=== PATIENT | female | born 1980 | race African-American/Black ===

== ENCOUNTER 2016-10-06 19:06 | Emergency (ER) | payer SELFPAY ==
[2016-10-06 19:14] VITALS: BP 97/63
[2016-10-06] MEDS ORDERED: NS 0.9% 1000 ML* 1,000 ML IV ONE (19:24)
[2016-10-06] MEDS ORDERED: LORazepam INJ* 2 MG/ML 1 ML VIAL IV ONE (19:24)
--- NOTE | 2016-10-06 20:16 | ED ---
Substance Abuse/Use - HPI Summary HPI Summary: Patient LUBA with a suspected drug overdose. Patient was found [address] stated she had taken heroin. Patient is a known drug abuser of opioids and admits to using previously, but not today. Patient states she got the drug on the street and it was "cut" with something like a tranquilizer. Patient is combative on arrival and immediately wants to sign out AMA. - History Of Current Complaint Chief Complaint: EDOverdose Stated Complaint: OVERDOSE Time Seen by Provider: 10/06/16 19:16 Hx Obtained From: Patient Hx Last Menstrual Period: murena/iud does not cycle ?: No Onset/Duration of Drug/ETOH Abuse: Minutes Ingestion History: Type/Name Of Drug - heroin and other unknown, Approximate Time Of Ingestion - unknown Overdose Characteristics: IV Timing Of Abuse: Daily Severity Initially: Moderate Severity Currently: Moderate Character: Fearful, Anxious, Angry, Frustrated Aggravating Factor(s): Nothing Alleviating Factor(s): Nothing Associated Signs And Symptoms: Paranoid Behavior, Altered Mental Status Related Hx: Drug/Alcohol Last Used @, Possible Multi Drug Ingestion - Risk Factor(s) Completed Suicide Risk Factors: White [place] - Allergies/Home Medications Allergies/Adverse Reactions: Allergies Allergy/AdvReac Type Severity Reaction Status Date / Time Amoxicillin Allergy Severe Rash Verified 01/25/15 09:56 Ketorolac Tromethamine Allergy Severe Anaphylatic Verified 01/25/15 09:56 [From Toradol] Shock Tramadol Allergy Severe Itching Verified 01/25/15 09:56 Levothyroxine Allergy Unknown Hives/Diff. Verified 01/25/15 09:56 Breathing/I tching PMH/Surg Hx/FS Hx/Imm Hx Previously Healthy: Yes Endocrine/Hematology History: Reports: Hx Thyroid Disease - Hypothryoidism Denies: Hx Diabetes Cardiovascular History: Reports: Other Cardiovascular Problems/Disorders - endocarditis Denies: Hx Hypertension Respiratory History: Denies: Hx Asthma, Hx Chronic Obstructive Pulmonary Disease (COPD) GI History: Reports: Hx Gastroesophageal Reflux Disease, Hx Ulcer - gerd Musculoskeletal History: Reports: Hx Back Problems, Other Musculoskeletal History - Ankle surgery Sensory History: Denies: Hx Contacts or Glasses Opthamlomology History: Denies: Hx Contacts or Glasses Psychiatric History: Reports: Hx Anxiety, Hx Depression, Hx Post Traumatic Stress Disorder, Hx Community Mental Health Tx, Other Psychiatric Issues/ Disorders - polysubstance abuse - Surgical History Surgery Procedure, Year, and Place: Ankle Surgery Infectious Disease History: No Infectious Disease History: Reports: Hx Hepatitis - Hepatitis C, Hx of Known/ Suspected MRSA, History Other Infectious Disease Denies: Hx Clostridium Difficile, Hx Human Immunodeficiency Virus (HIV), Hx Shingles, Hx Tuberculosis, Traveled Outside the [place] in Last 30 Days - Social History Occupation: Unemployed Lives: Alone Alcohol Use: None Hx Substance Use: Yes Substance Use Type: Reports: Cocaine, Heroin, Marijuana, Synthetic Drugs, Prescribed, Tranquilizers Substance Use Comment - Amount & Last Used: heroin addiction-last used January 2015 Hx Tobacco Use: Yes Smoking Status (MU): Current Every Day Smoker Type: Cigarettes Amount Used/How Often: 1/2 pack a day Have You Smoked in the Last Year: Yes Review of Systems Positive: Skin Diaphoresis Positive: Palpitations Positive: Shortness Of Breath Positive: no symptoms reported, see HPI Positive: Arthralgia - back pain 05/06 Neurological: Negative Positive: Anxious All Other Systems Reviewed And Are Negative: Yes Physical Exam Triage Information Reviewed: Yes Vital Signs On Initial Exam: Initial Vitals Temp Pulse Resp BP Pulse Ox 98.1 F 97 24 97/63 97 10/06/16 19:08 10/06/16 19:08 10/06/16 19:08 10/06/16 19:08 10/06/16 19:08 Vital Signs Reviewed: Yes Appearance: Positive: Ill-Appearing, Pain Distress, Obese Skin: Positive: Warm, Diaphoretic Head/Face: Positive: Normal Head/Face Inspection Eyes: Positive: EOMI, CARMELA, Other: - miosis Neck: Positive: No Lymphadenopathy Respiratory/Lung Sounds: Positive: Clear to Auscultation Cardiovascular: Positive: Tachycardia Bowel Sounds: Positive: Present Neurological: Positive: Normal, Sensory/Motor Intact, Other - no alert or oriented to place or time AVPU Assessment: Alert - [place] Coma Scale Best Eye Response: 4 - Spontaneous Best Motor Response: 5 - Purposeful Movement Best Verbal Response: 5 - Oriented Diagnostics - Vital Signs Vital Signs Temp Pulse Resp BP Pulse Ox 10/06/16 19:08 98.1 F 97 24 97/63 97 - Laboratory Lab Statement: Any lab studies that have been ordered have been reviewed, and results considered in the medical decision making process. Course/Dx - Course Course Of Treatment: Patient combative on exam. Physical exam limited d/t behavior. Patient admits to heroin. Refusing treatment. signing out AMA. - Diagnoses Differential Diagnosis/HQI/PQRI: Positive: Delirium Tremens, Drug Abuse, Drug Withdrawal, Metabolic Disorder Provider Diagnoses: Overdose Discharge - Discharge Plan Condition: Fair Disposition: AGAINST MEDICAL ADVICE Referrals: Non Staff,Doctor [Primary Care Provider] -
== END 2016-10-06 21:37 | disposition left against medical advice (07) ==
LOC: ED 19:06
DX: T40.1X4A Poisoning by heroin, undetermined, initial encounter (principal); R06.02 Shortness of breath; M54.9 Dorsalgia, unspecified; R00.2 Palpitations; F17.210 Nicotine dependence, cigarettes, uncomplicated; Y92.9 Unspecified place or not applicable
CPT/HCPCS: 96374; 99282

== ENCOUNTER 2016-10-13 06:04 | Inpatient (IN) | payer SELFPAY ==
--- NOTE | 2016-10-13 10:36 | RAD ---
Indication: Altered mental status, vomiting. Endocarditis. Comparison: January 25, 2015 Technique: Upright AP 0620 hours Report: Obese body habitus limits image quality. Grossly clear lungs and pleural spaces. Negative for pneumothorax. Suggestion of mild cardiomegaly. Unremarkable central pulmonary vasculature and mediastinal contours. Negative for free air beneath the diaphragm. IMPRESSION: No acute cardiopulmonary process evident.
[2016-10-13] MEDS ORDERED: Ondansetron INJ* 2 MG/ML VIAL IV ONE ×5 (10:54→16:33)
[2016-10-13 11:23] LABS: Hematocrit 44 % (35-47); Hemoglobin 14.3 g/dl (12.0-16.0); Mean Corpuscular HGB Conc 33 g/dl (31-36); Mean Corpuscular Hemoglobin 30 pg (27-31); Mean Corpuscular Volume 94 fL (80-97); Mean Platelet Volume 8 um3 (7.4-10.4); Red Blood Count 4.71 10^6/ul (4.0-5.4); Red Cell Distribution Width 16 % (10.5-15)
[2016-10-13 11:27] LABS: Add Diff/Slide Review? Slide Review Added; Comments Flag Yes
[2016-10-13 11:38] LABS: ALT 95 U/L (7-52); AST 118 U/L (13-39); Albumin 3.9 g/dL (3.2-5.2); Alkaline Phosphatase 113 U/L (34-104); Anion Gap 13 mmol/L (2-11); BUN/Creatinine Ratio 11.5 (8-20); Blood Urea Nitrogen 9 mg/dL (6-24); C Reactive Protein 22.16 mg/L (< 5.00); CO2 Carbon Dioxide 22 mmol/L (22-32); Calcium 9.1 mg/dL (8.6-10.3); Chloride 102 mmol/L (101-111); Creatine Kinase 368 U/L (10-223); EGFR African American 106.9 (>60); EGFR Non-African American 83.1 (>60); Globulin 3.2 g/dL (2-4); Glucose 72 mg/dL (70-100); Magnesium 2.1 mg/dL (1.9-2.7); Potassium 4.1 mmol/L (3.5-5.0); Sodium 137 mmol/L (133-145); Total Protein 7.1 g/dL (6.4-8.9)
[2016-10-13] MEDS ORDERED: Ondansetron ODT TAB* 4 MG ONE (11:44)
[2016-10-13] MEDS ORDERED: Ondansetron ODT TAB* 4 MG PO ONE ×2 (11:46→12:34)
[2016-10-13 11:49] LABS: B Type Natriuretic Peptide 105 pg/mL
[2016-10-13 12:10] LABS: TSH (Thyroid Stimulating Horm) 1.54 mcIU/mL (0.34-5.60)
[2016-10-13] MEDS ORDERED: NS 0.9% 1000 ML* 1,000 ML IV ONE ×2 (12:29→13:32)
[2016-10-13 13:14] LABS: Acetaminophen < 15 mcg/mL; Alcohol < 10 mg/dL (<10); Salicylate < 2.50 mg/dL (<30)
[2016-10-13] MEDS ORDERED: LORazepam INJ* 2 MG/ML 1 ML VIAL IV ONE (14:19)
[2016-10-13 16:27] LABS: Lipase < 10 U/L (11.0-82.0)
[2016-10-13] MEDS ORDERED: PROCHLORPERAZINE INJ 5 MG/ML 2 ML VIAL IV ONE (17:17)
[2016-10-13] MEDS ORDERED: Trimethobenzamide IM* 100 MG/ML 2 ml VIAL IM PRN (17:20)
[2016-10-13] MEDS ORDERED: LORazepam INJ* 2 MG/ML 1 ML VIAL ONE (17:29)
[2016-10-13] MEDS: LORazepam INJ* 2 MG/ML 1 ML VIAL IV PUSH PRN ×2 (17:32→23:21)
[2016-10-13 18:08] LABS: Urine Bilirubin Negative (Negative); Urine Glucose Negative (Negative); Urine Nitrite Negative (Negative)
[2016-10-13 18:09] LABS: Benzodiazepine Urine Screen Presumptive Positive (None Detect)
--- NOTE | 2016-10-13 18:47 | ED ---
ILeticia SooYoung, scribed for Matt Abreu MD on 10/13/16 at 1049 . Progress - Progress Note Progress Note: Sign-out from Dr. Resendez. Pt is a 36 y/o F BIBA to ED for heroin overdose, vomiting. She was found apneic and unresponsive by EMS and given narcan which reportedly worked to some extent. They still had to bag assist her breathing on the way to the hospital but when I saw her she was sleepy but maintaining her own airway. We checked her labs here but had a very difficult time getting blood and were unable to establish a peripheral line. Her initial ecg had a QTc of about 500. after a couple hours here she developed nausea and vomiting and I was forced to place a femoral line to administer fluids and antiemetics. A repeat ecg showed her QTc to be improved to 440 so she was given Zofran. She remained with a decreased mental status and periodic vomiting for several hours and I contacted the hospitalist service for admission. She was admitted in stable condition with a diagnosis of poly-substance abuse and overdose. - EKG/XRAY/CT Comments: EKG at 1050: NSR and QTC is 436. XRAY: chest Xray Comments: read by radiologist, impression: no active cardiopulmonary process evident Course/Dx - Diagnoses Provider Diagnoses: Polysubstance abuse, Overdose - Provider Notifications Discussed Care Of Patient With: Dr. Dailey, hospitalist Time Discussed With Above Provider: 16:19 Instructed by Provider To: Admit As Inpatient The documentation as recorded by the Leticia burr SooYoung accurately reflects the service I personally performed and the decisions made by me, Matt Abreu MD.
[2016-10-13] MEDS: NS 0.9% 1000 ML* 1,000 ML IV SCH (21:10)
[2016-10-13] MEDS ORDERED: Mouth Piece, Nicotine* 1 EACH CARTRIDGE ONE (22:25)
[2016-10-13] MEDS ORDERED: Nicotine PATCH 21 MG/24 HR* PATCH ONE (22:26)
[2016-10-13] MEDS ORDERED: Nicotine Inhaler* 10 MG AMP ONE (22:26)
[2016-10-13] MEDS: Nicotine Inhaler* 10 MG AMP INH PRN (22:30)
[2016-10-13] MEDS: Ondansetron INJ* 2 MG/ML VIAL IV PRN (22:31)
[2016-10-13] MEDS ORDERED: Mouth Piece, Nicotine* 1 EACH CARTRIDGE INH ONE (23:00)
[2016-10-13] MEDS ORDERED: Nicotine PATCH 21 MG/24 HR* PATCH TRANSDERM SCH (23:00)
--- NOTE | 2016-10-14 00:23 | HP ---
HISTORY AND PHYSICAL: DATE OF ADMISSION: 10/13/16 PRIMARY CARE PROVIDER: None. CHIEF COMPLAINT: Overdose. HISTORY OF PRESENT ILLNESS: Ms. Liao is a 36-year-old female with a history of long-standing heroin abuse and prescription drug abuse who was seen initially in the emergency room on 10/06/16 after being found half nude on the street stating that she had taken heroin. The patient at that time thought the heroin was caught with something like an animal tranquilizer. The patient was combative and signed out against medical advice at that time. The patient re- presented on 10/13/16 after being found having overdosed on an unknown drug. The patient thought she snorted heroin. The patient stated approximately 5 p.m. on the day prior to admission, she snorted some substance that she believes to be heroin; however, she was then found unresponsive. It is not completely clear who found her and called 911. The patient has been living in [facility] with her father and had been clean from heroin; however, abusing her prescription drugs including Ritalin, Klonopin, and Elavil. The patient came to [place] for the last 1 week after her son was going to be leaving for [place] and she wanted to see him prior to leaving. The patient has completed many programs in the past and has been on methadone program until April 2016. She states that she has not been using any prescription narcotics that she obtained legally or illegally. The patient's father initially stated that she abused narcotics and when that information was obtained, I asked her if she felt she maybe withdrawing and she felt that she maybe actually withdrawing; however, it was later clarified she was not actually using narcotic medications, so it is unclear what she maybe withdrawing from. PAST MEDICAL HISTORY: 1. Depression. 2. Anxiety. 3. ADD. 4. Hypothyroidism. 5. History of C. difficile 3 to 4 weeks ago. PAST SURGICAL HISTORY: Right ankle surgery. MEDICATIONS: 1. Levothyroxine 112 mcg p.o. daily. 2. Celexa at unknown dose daily. 3. Ritalin 20 mg p.o. t.i.d. 4. Klonopin 2 mg p.o. t.i.d. p.r.n. anxiety. 5. Elavil 100 mg p.o. at bedtime. ALLERGIES: AMOXICILLIN, KETOROLAC, and TRAMADOL. FAMILY HISTORY: Dad is living, he is 67. He has a history of hypertension, hypothyroidism, and type 2 diabetes. Mom is living, she is 64. Her health status is unknown. SOCIAL HISTORY: The patient is a nonsmoker. She does not drink alcohol. She has a history of heroin abuse as well as abusing prescription drugs. She is not working currently. She is not . She has 1 child who is 18 years old. She indicates that her godmother, Monica Flores, phone number is her health care proxy. REVIEW OF SYSTEMS: The patient admits to fevers, chills, anorexia, and chest pain ongoing since snorting last evening. She describes the chest discomfort is as if someone is sitting on her chest. She states it has been coming and going, but has been present consistently since 5 p.m. last evening. She admits to cough. No shortness of breath. She admits to persistent nausea and vomiting since snorting whatever substance it was last evening. No diarrhea. No abdominal pain. Denies any blood in her stool. No blood in her urine. No dysuria. No focal weakness or sensory loss. No sudden changes in vision. No dysphagia. No joint pains or muscle pains out of the ordinary. No rashes. She admits to anxiety and depression as above. PHYSICAL EXAMINATION GENERAL: The patient is a 36-year-old obese female, sitting in the stretcher, frequently vomiting brown chunky material into the vomit bag. VITAL SIGNS: Blood pressure 137/108, pulse 94, respirations 16, temperature 98.8, and O2 sat 99% on room air. HEENT: Pupils are equal. They are round. They react to light. Extraocular muscles are intact. Oropharynx is clear. Oral mucosa is moist. There is no submandibular, cervical, or supraclavicular adenopathy. NECK: Thyroid is not enlarged. No thyroid nodules noted. PULMONARY: Lungs are clear to auscultation bilaterally. CARDIAC: Normal S1, S2. Regular rate and rhythm. I do not appreciate any murmurs. There is no lower extremity edema. ABDOMEN: Bowel sounds are hypoactive. Abdomen is soft, nontender, and nondistended. MUSCULOSKELETAL: There is no cyanosis or clubbing of the digits. There is full active range of motion of all 4 extremities. NEUROLOGIC: Cranial nerves II through XII are grossly intact. Sensation is intact to light touch throughout. Strength is 5/5 and symmetric in both upper and lower extremities bilaterally. PSYCH: The patient is alert. She is oriented x3. Affect appears appropriate. SKIN: Warm. It is dry. She has scratching on her right forearm. No other obvious skin breakdown. DIAGNOSTIC STUDIES/LAB DATA: WBC 11.0, hemoglobin 14.3, hematocrit 44, and platelets 209. Sodium 137, potassium 4.1, chloride 102, CO2 22, BUN 9, creatinine 0.78, glucose 72, lactic acid 1.0, calcium 9.1, and magnesium 2.1. Bilirubin 0.8, AST 118, ALT 95, and alk phos 113. Ammonia 36. CPK 368 and CK- MB 3.7. Troponin 0. CRP 22.16. BNP 105. Albumin 3.9, lipase less than 10. TSH 1.54. Salicylate less than 2.5. Acetaminophen less than 15. Alcohol less than 10. Chest x-ray: No acute cardiopulmonary process. EKG reveals sinus arrhythmia without any acute ST-T wave abnormality. ASSESSMENT AND PLAN: Ms. Liao is a 36-year-old female with a long- standing history of heroin abuse and prescription drug abuse who presents to the emergency room after overdosing on what she thought was heroin though she is not sure. 1. Unintentional drug overdose: The drug that she snorted last night is not completely clear. She believed that it was heroin. She believed that she overdosed on heroin laced with animal tranquilizers 1 week ago. I asked what was different between that overdose and this. She states that she was not this ill last time. The patient could potentially be withdrawing from her prescription medications especially if does abuse these. For now, the patient' s biggest symptoms are persistent nausea and vomiting. She will be admitted as observation to try to control the nausea and vomiting. The patient's father is present. He drove in from [facility]. He states that he will not be taking her back to [facility] unless she gets into a drug treatment program. 2. Transaminitis: I suspect this is related to her drug overdose. I will go ahead and get followup liver panel tomorrow. Additionally, the patient has a mildly elevated CPK and this will be followed up tomorrow as well. 3. Anxiety and depression: At this point, the patient does not know her usual dose of Celexa. I am going to have IV Ativan available given her severe nausea and vomiting at this point. She will need to be restarted on her usual home regimen of Celexa, Klonopin, and Elavil once she is more stable. 4. Hypothyroidism: The patient will be maintained on her usual dose of Synthroid. 5. DVT prophylaxis: According to the Adult Thrombosis Prophylaxis Risk Factor Assessment Guide, the patient has a total risk factor score of 1, making her low risk. Ambulation will be utilized as DVT prophylaxis. 6. Code status: Full and again, the patient indicates that her godmother, Monica Flores, is her health care proxy. TIME SPENT: Sixty-five minutes was spent admitting this patient. [id number]/CPS #: [id number] MTDD
[2016-10-14] MEDS: PROCHLORPERAZINE INJ 5 MG/ML 2 ML VIAL IV PRN ×3 (01:05→22:45)
[2016-10-14] MEDS: LEVOTHYROXINE 112 MCG PO SCH (05:39)
[2016-10-14] MEDS: NS 0.9% 1000 ML* 1,000 ML IV SCH (05:44)
[2016-10-14] MEDS: LORazepam INJ* 2 MG/ML 1 ML VIAL IV PUSH PRN ×2 (05:48→17:47)
[2016-10-14 05:58] LABS: Hematocrit 37 % (35-47); Hemoglobin 12.6 g/dl (12.0-16.0); Mean Corpuscular HGB Conc 34 g/dl (31-36); Mean Corpuscular Hemoglobin 31 pg (27-31); Mean Corpuscular Volume 90 fL (80-97); Mean Platelet Volume 8 um3 (7.4-10.4); Red Blood Count 4.13 10^6/ul (4.0-5.4); Red Cell Distribution Width 16 % (10.5-15); White Blood Count 12.8 10^3/ul (3.5-10.8)
[2016-10-14 06:16] LABS: Albumin 3.5 g/dL (3.2-5.2); BUN/Creatinine Ratio 6.9 (8-20); Calcium 8.7 mg/dL (8.6-10.3); Direct Bilirubin 0.2 mg/dL (0.03-0.18); EGFR African American 117.2 (>60); EGFR Non-African American 91.1 (>60); Indirect Bilirubin 0.5 mg/dL (0.3-1.0); Total Bilirubin 0.7 mg/dL (0.2-1.0); Total Protein 6.5 g/dL (6.4-8.9)
[2016-10-14 06:25] LABS: Potassium 2.7 mmol/L (3.5-5.0)
[2016-10-14] MEDS ORDERED: Potassium Chlor TAB* 20 MEQ TAB.ER PO ONE (07:13)
[2016-10-14] MEDS: KCL 20 MEQ/100 ML IVPREMIX* 20 MEQ/100 ML BAG IV SCH ×3 (07:57→13:05)
--- NOTE | 2016-10-14 10:19 | PN ---
Subjective Date of Service: 10/14/16 Interval History: Pt is feeling lousy still. She is still very nauseous and has not been able to hold anything down today. She states she has abdominal pain but when asked specifically about the pain she stated it was nausea. Objective Active Medications: Sodium Chloride (Ns 0.9% 1000 Ml*) 1,000 mls @ 125 mls/hr IV PER RATE [facility] Last Admin: 10/14/16 05:44 Dose: 125 mls/hr Potassium Chloride (Potassium Chloride 20 Meq/100 Ml Ivpremix*) 20 meq in 100 mls @ 50 mls/hr IV Q2H [facility] Stop: 10/14/16 13:29 Last Admin: 10/14/16 07:57 Dose: 50 mls/hr Lorazepam (Ativan Inj*) 1 mg IV PUSH Q6H PRN PRN Reason: Anxiety or nausea Last Admin: 10/14/16 05:48 Dose: 1 mg Metoclopramide HCl (Reglan Iv*) 10 mg IV Q6H PRN PRN Reason: NAUSEA/VOMITING Nicotine (Nicotine Inhaler*) 10 mg INH Q2H PRN PRN Reason: CRAVING Last Admin: 10/13/16 22:30 Dose: 10 mg Nicotine (Nicotine Patch 21 Mg/24 Hr*) 1 patch TRANSDERM 0700 [facility] Synthroid (Brand (Only) 112 Mcg Tablet) 1 dose PO 0600 [facility] Last Admin: 10/14/16 05:39 Dose: Not Given Ondansetron HCl (Zofran Inj*) 4 mg IV Q6H PRN PRN Reason: NAUSEA Last Admin: 10/13/16 22:31 Dose: 4 mg Pharmacy Profile Note (Nicotine Patch Removal Note*) 1 note PATCH OFF 2100 [facility] Prochlorperazine Edisylate (Compazine Inj*) 10 mg IV Q6H PRN PRN Reason: NAUSEA/VOMITING Last Admin: 10/14/16 01:05 Dose: 10 mg Trimethobenzamide HCl (Tigan Im*) 200 mg IM Q6H PRN PRN Reason: NAUSEA Vital Signs 10/13/16 10/13/16 10/13/16 17:00 17:32 18:00 Temperature Pulse Rate 96 100 Respiratory 16 20 Rate Blood Pressure 137/108 (mmHg) O2 Sat by Pulse 99 95 Oximetry 10/13/16 10/13/16 10/13/16 19:00 19:12 21:09 Temperature 98.7 F 98.3 F Pulse Rate 102 88 100 Respiratory 20 22 Rate Blood Pressure 104/68 144/94 (mmHg) O2 Sat by Pulse 96 98 Oximetry 10/13/16 10/13/16 10/13/16 21:14 21:24 23:21 Temperature 98.3 F Pulse Rate 98 Respiratory 20 20 18 Rate Blood Pressure 144/94 (mmHg) O2 Sat by Pulse 98 Oximetry 10/13/16 10/14/16 10/14/16 23:41 00:21 03:22 Temperature 98.3 F Pulse Rate 97 106 Respiratory 24 20 20 Rate Blood Pressure 144/78 149/83 (mmHg) O2 Sat by Pulse 97 97 Oximetry 10/14/16 10/14/16 10/14/16 05:48 06:48 07:41 Temperature 99.3 F Pulse Rate 116 Respiratory 22 16 18 Rate Blood Pressure 119/68 (mmHg) O2 Sat by Pulse 96 Oximetry Oxygen Devices in Use Now: None Appearance: Young obese female lying in bed, NAD Eyes: No Scleral Icterus Ears/Nose/Mouth/Throat: Mucous Membranes Moist Respiratory: Symmetrical Chest Expansion and Respiratory Effort, Clear to Auscultation - anteriorly Cardiovascular: NL Sounds; No Murmurs; No JVD, - - tachycardic but regular Abdominal: NL Sounds; No Tenderness; No Distention Extremities: No Clubbing, Cyanosis Skin: No Rash or Ulcers, No Nodules or Sclerosis Neurological: - - sleepy, awakens after several attempts Result Diagrams: 10/14/16 05:39 10/14/16 05:39 Microbiology and Other Data: Microbiology 10/13/16 19:05 Nasal Screen MRSA (PCR)(ASHLEY) - Final Nasal Mrsa Negative Assess/Plan/Problems-Billing Ms Liao is a 36 yo F who has a h/o heroin abuse who presented to the ER after overdosing on a substance she believed to be heroin. - Patient Problems (1) Overdose Current Visit: Yes Status: Acute Code(s): T50.901A - POISONING BY UNSP DRUG/ MEDS/BIOL SUBST, ACCIDENTAL, INIT SNOMED Code(s): 33353098 Comment: Unclear what the patient overdosed on. She is now able to communicate but is sleepy. She continues to have significant nausea and vomiting that I am not sure is related to her overdose. Continue aggressive antiemetic therapies. Social work eval pending as her father states he will not take her home unless she is going into a treatment program. (2) Hypothyroid Current Visit: Yes Status: Chronic Code(s): E03.9 - HYPOTHYROIDISM, UNSPECIFIED SNOMED Code(s): 19529637 Comment: Continue current dose of synthroid. (3) DVT prophylaxis Current Visit: Yes Status: Acute Code(s): HUW3100 - SNOMED Code(s): 323475049 Comment: ambulation (4) Full code status Current Visit: Yes Status: Acute Code(s): Z78.9 - OTHER SPECIFIED HEALTH STATUS SNOMED Code(s): 479521824
[2016-10-14] MEDS: Nicotine PATCH 21 MG/24 HR* PATCH TRANSDERM SCH (10:24)
[2016-10-14] MEDS: Ondansetron INJ* 2 MG/ML VIAL IV PRN ×2 (10:24→21:46)
[2016-10-14] MEDS: Nicotine Patch Removal NOTE PATCH OFF SCH (21:14)
[2016-10-15] MEDS: NS 0.9% 1000 ML* 1,000 ML IV SCH ×3 (00:34→20:51)
[2016-10-15] MEDS: Metoclopramide IV* 5 MG/ML 2 ML VIAL IV PRN ×2 (02:58→09:33)
[2016-10-15] MEDS: PROCHLORPERAZINE INJ 5 MG/ML 2 ML VIAL IV PRN ×4 (05:41→23:11)
[2016-10-15] MEDS: LORazepam INJ* 2 MG/ML 1 ML VIAL IV PUSH PRN ×2 (05:42→17:49)
[2016-10-15] MEDS: LEVOTHYROXINE 112 MCG PO SCH (06:26)
[2016-10-15 07:43] LABS: BUN/Creatinine Ratio 6.3 (8-20); Calcium 8.2 mg/dL (8.6-10.3); EGFR African American 136.7 (>60); EGFR Non-African American 106.3 (>60)
[2016-10-15] MEDS: Nicotine PATCH 21 MG/24 HR* PATCH TRANSDERM SCH (07:50)
[2016-10-15] MEDS: Ondansetron INJ* 2 MG/ML VIAL IV PRN ×2 (08:26→20:52)
[2016-10-15 09:07] LABS: Hematocrit 38 % (35-47); Hemoglobin 12.8 g/dl (12.0-16.0); Mean Corpuscular HGB Conc 34 g/dl (31-36); Mean Corpuscular Hemoglobin 31 pg (27-31); Mean Corpuscular Volume 92 fL (80-97); Mean Platelet Volume 8 um3 (7.4-10.4); Red Blood Count 4.13 10^6/ul (4.0-5.4); Red Cell Distribution Width 16 % (10.5-15); White Blood Count 8.5 10^3/ul (3.5-10.8)
[2016-10-15] MEDS: KCL 20 MEQ/100 ML IVPREMIX* 20 MEQ/100 ML BAG IV SCH ×2 (09:33→13:55)
--- NOTE | 2016-10-15 10:05 | PN ---
Subjective Date of Service: 10/15/16 Interval History: Pt states she is still feeling terrible but less vomiting today than yesterday. She repeatedly asks for more IV ativan. Objective Active Medications: Clonazepam (Klonopin Tab(*)) 2 mg PO TID PRN PRN Reason: ANXIETY Sodium Chloride (Ns 0.9% 1000 Ml*) 1,000 mls @ 125 mls/hr IV PER RATE [facility] Last Admin: 10/15/16 00:34 Dose: 125 mls/hr Potassium Chloride (Potassium Chloride 20 Meq/100 Ml Ivpremix*) 20 meq in 100 mls @ 50 mls/hr IV Q2H [facility] Stop: 10/15/16 13:59 Last Admin: 10/15/16 09:33 Dose: 50 mls/hr Lorazepam (Ativan Inj*) 1 mg IV PUSH Q12H PRN PRN Reason: Anxiety or nausea Last Admin: 10/15/16 05:42 Dose: 1 mg Metoclopramide HCl (Reglan Iv*) 10 mg IV Q6H PRN PRN Reason: NAUSEA/VOMITING Last Admin: 10/15/16 09:33 Dose: 10 mg Nicotine (Nicotine Inhaler*) 10 mg INH Q2H PRN PRN Reason: CRAVING Last Admin: 10/13/16 22:30 Dose: 10 mg Nicotine (Nicotine Patch 21 Mg/24 Hr*) 1 patch TRANSDERM 0700 [facility] Last Admin: 10/15/16 07:50 Dose: Not Given Synthroid (Brand (Only) 112 Mcg Tablet) 1 dose PO 0600 [facility] Last Admin: 10/15/16 06:26 Dose: Not Given Ondansetron HCl (Zofran Inj*) 4 mg IV Q6H PRN PRN Reason: NAUSEA Last Admin: 10/15/16 08:26 Dose: 4 mg Pharmacy Profile Note (Nicotine Patch Removal Note*) 1 note PATCH OFF 2100 [facility] Last Admin: 10/14/16 21:14 Dose: Not Given Prochlorperazine Edisylate (Compazine Inj*) 10 mg IV Q6H PRN PRN Reason: NAUSEA/VOMITING Last Admin: 10/15/16 05:41 Dose: 10 mg Trimethobenzamide HCl (Tigan Im*) 200 mg IM Q6H PRN PRN Reason: NAUSEA Vital Signs 10/14/16 10/14/16 10/14/16 15:46 17:47 18:47 Temperature 97.8 F Pulse Rate 88 Respiratory 18 20 Rate Blood Pressure 127/91 (mmHg) O2 Sat by Pulse 99 Oximetry 10/14/16 10/14/16 10/14/16 19:29 19:47 20:00 Temperature 97.9 F Pulse Rate 98 Respiratory 24 18 18 Rate Blood Pressure 116/67 (mmHg) O2 Sat by Pulse 97 Oximetry 10/14/16 10/14/16 10/14/16 20:47 21:47 22:47 Temperature Pulse Rate Respiratory 18 18 18 Rate Blood Pressure (mmHg) O2 Sat by Pulse Oximetry 10/14/16 10/14/16 10/15/16 23:17 23:47 00:47 Temperature 97.9 F Pulse Rate 102 Respiratory 24 18 18 Rate Blood Pressure 118/62 (mmHg) O2 Sat by Pulse 98 Oximetry 10/15/16 10/15/16 10/15/16 01:47 03:36 05:42 Temperature 97.5 F Pulse Rate 87 Respiratory 18 20 18 Rate Blood Pressure 115/72 (mmHg) O2 Sat by Pulse 98 Oximetry 10/15/16 10/15/16 06:42 07:42 Temperature 97.4 F Pulse Rate 88 Respiratory 18 18 Rate Blood Pressure 118/75 (mmHg) O2 Sat by Pulse 100 Oximetry Oxygen Devices in Use Now: None Appearance: Young female lying in bed, awake, NAD Eyes: No Scleral Icterus Ears/Nose/Mouth/Throat: Mucous Membranes Moist Respiratory: Symmetrical Chest Expansion and Respiratory Effort, Clear to Auscultation Cardiovascular: NL Sounds; No Murmurs; No JVD, RRR, No Edema Abdominal: NL Sounds; No Tenderness; No Distention Extremities: No Clubbing, Cyanosis Skin: No Rash or Ulcers, No Nodules or Sclerosis Neurological: Alert and Oriented x 3 Result Diagrams: 10/15/16 08:53 10/15/16 06:42 Microbiology and Other Data: Microbiology 10/13/16 19:05 Nasal Screen MRSA (PCR)(ASHLEY) - Final Nasal Mrsa Negative Assess/Plan/Problems-Billing Ms Liao is a 36 yo F who has a h/o heroin abuse who presented to the ER after overdosing on a substance she believed to be heroin. - Patient Problems (1) Overdose Current Visit: Yes Status: Acute Code(s): T50.901A - POISONING BY UNSP DRUG/ MEDS/BIOL SUBST, ACCIDENTAL, INIT SNOMED Code(s): 75299629 Comment: Only issue currently is that she continues to have intractable nausea and vomiting. She has not been getting some of the other antiemetics. Will work on alternating the medications. Advance diet to bland. (2) Hypothyroid Current Visit: Yes Status: Chronic Code(s): E03.9 - HYPOTHYROIDISM, UNSPECIFIED SNOMED Code(s): 04532004 Comment: Continue current dose of synthroid. (3) DVT prophylaxis Current Visit: Yes Status: Acute Code(s): EDH1711 - SNOMED Code(s): 141550723 Comment: ambulation (4) Full code status Current Visit: Yes Status: Acute Code(s): Z78.9 - OTHER SPECIFIED HEALTH STATUS SNOMED Code(s): 630235318
[2016-10-15] MEDS: clonazePAM TAB(*) 1 MG PO PRN ×2 (10:57→20:52)
[2016-10-15] MEDS: Nicotine Patch Removal NOTE PATCH OFF SCH (20:55)
[2016-10-15] MEDS ORDERED: Mouth Piece, Nicotine* 1 EACH CARTRIDGE ONE (21:01)
[2016-10-15] MEDS: Nicotine Inhaler* 10 MG AMP INH PRN (21:02)
[2016-10-16] MEDS: NS 0.9% 1000 ML* 1,000 ML IV SCH ×2 (04:52→19:42)
[2016-10-16] MEDS: Nicotine PATCH 21 MG/24 HR* PATCH TRANSDERM SCH (05:40)
[2016-10-16] MEDS: LEVOTHYROXINE 112 MCG PO SCH (05:40)
[2016-10-16] MEDS: PROCHLORPERAZINE INJ 5 MG/ML 2 ML VIAL IV PRN ×3 (06:16→23:59)
[2016-10-16] MEDS: Metoclopramide IV* 5 MG/ML 2 ML VIAL IV PRN (07:13)
[2016-10-16] MEDS: clonazePAM TAB(*) 1 MG PO PRN ×3 (07:13→23:57)
[2016-10-16 08:16] LABS: Calcium 8.9 mg/dL (8.6-10.3); EGFR African American 127.4 (>60); Potassium 3.3 mmol/L (3.5-5.0)
[2016-10-16] MEDS ORDERED: Potassium Chlor TAB* 20 MEQ TAB.ER PO ONE (08:32)
--- NOTE | 2016-10-16 08:42 | PN ---
Subjective Date of Service: 10/16/16 Interval History: Pt is feeling "miserable." When I ask her what his bothering her she states her anxiety and her stomach is upset. She states that she thinks her stomach is upset secondary to her anxiety. She requests to restart her celexa and elavil. She is not sure if she is ready to go home yet. Objective Active Medications: Amitriptyline HCl (Elavil Tab*) 100 mg PO BEDTIME [facility] Citalopram Hydrobromide (Celexa Tab*) 20 mg PO DAILY [facility] Clonazepam (Klonopin Tab(*)) 2 mg PO TID PRN PRN Reason: ANXIETY Last Admin: 10/16/16 07:13 Dose: 2 mg Sodium Chloride (Ns 0.9% 1000 Ml*) 1,000 mls @ 125 mls/hr IV PER RATE [facility] Last Admin: 10/16/16 04:52 Dose: 125 mls/hr Lorazepam (Ativan Inj*) 1 mg IV PUSH Q12H PRN PRN Reason: Anxiety or nausea Last Admin: 10/15/16 17:49 Dose: 1 mg Metoclopramide HCl (Reglan Iv*) 10 mg IV Q6H PRN PRN Reason: NAUSEA/VOMITING Last Admin: 10/16/16 07:13 Dose: 10 mg Nicotine (Nicotine Inhaler*) 10 mg INH Q2H PRN PRN Reason: CRAVING Last Admin: 10/15/16 21:02 Dose: 10 mg Nicotine (Nicotine Patch 21 Mg/24 Hr*) 1 patch TRANSDERM 0700 [facility] Last Admin: 10/16/16 05:40 Dose: Not Given Synthroid (Brand (Only) 112 Mcg Tablet) 1 dose PO 0600 [facility] Last Admin: 10/16/16 05:40 Dose: Not Given Ondansetron HCl (Zofran Inj*) 4 mg IV Q6H PRN PRN Reason: NAUSEA Last Admin: 10/15/16 20:52 Dose: 4 mg Pharmacy Profile Note (Nicotine Patch Removal Note*) 1 note PATCH OFF 2100 [facility] Last Admin: 10/15/16 20:55 Dose: Not Given Prochlorperazine Edisylate (Compazine Inj*) 10 mg IV Q6H PRN PRN Reason: NAUSEA/VOMITING Last Admin: 10/16/16 06:16 Dose: 10 mg Trimethobenzamide HCl (Tigan Im*) 200 mg IM Q6H PRN PRN Reason: NAUSEA Vital Signs 10/15/16 10/15/16 10/15/16 10:57 12:57 15:45 Temperature 98.5 F Pulse Rate 94 Respiratory 16 16 16 Rate Blood Pressure 120/88 (mmHg) O2 Sat by Pulse 98 Oximetry 10/15/16 10/15/16 10/15/16 17:49 18:49 20:00 Temperature Pulse Rate Respiratory 16 16 18 Rate Blood Pressure (mmHg) O2 Sat by Pulse Oximetry 10/15/16 10/15/16 10/15/16 20:52 22:52 22:53 Temperature Pulse Rate 97 Respiratory 18 18 20 Rate Blood Pressure 119/74 (mmHg) O2 Sat by Pulse 98 Oximetry 10/15/16 10/16/16 23:24 07:13 Temperature 98.5 F Pulse Rate 84 Respiratory 24 16 Rate Blood Pressure 135/72 (mmHg) O2 Sat by Pulse 97 Oximetry Oxygen Devices in Use Now: None Appearance: Young female lying in bed, NAD Eyes: No Scleral Icterus Ears/Nose/Mouth/Throat: Mucous Membranes Moist Respiratory: Symmetrical Chest Expansion and Respiratory Effort, Clear to Auscultation Cardiovascular: NL Sounds; No Murmurs; No JVD, RRR, No Edema Abdominal: NL Sounds; No Tenderness; No Distention Extremities: No Clubbing, Cyanosis Skin: No Rash or Ulcers, No Nodules or Sclerosis Neurological: Alert and Oriented x 3 Result Diagrams: 10/15/16 08:53 10/16/16 06:46 Microbiology and Other Data: Microbiology 10/13/16 19:05 Nasal Screen MRSA (PCR)([facility]LEY) - Final Nasal Mrsa Negative Assess/Plan/Problems-Billing Ms Liao is a 36 yo F who has a h/o heroin abuse who presented to the ER after overdosing on a substance she believed to be heroin. - Patient Problems (1) Overdose Current Visit: Yes Status: Acute Code(s): T50.901A - POISONING BY UNSP DRUG/ MEDS/BIOL SUBST, ACCIDENTAL, INIT SNOMED Code(s): 67689571 Comment: Nausea continues but the vomiting has improved. I think she is getting close to being ready to go home. The plan is for the patient to go back to [facility] with her father and establish with a new counselor and PCP. Possibly d/c this afternoon. (2) Hypothyroid Current Visit: Yes Status: Chronic Code(s): E03.9 - HYPOTHYROIDISM, UNSPECIFIED SNOMED Code(s): 32284955 Comment: Continue current dose of synthroid (pt had not been receiving as she can only take brand name-brand name synthroid has been ordered and is available to start this AM). (3) DVT prophylaxis Current Visit: Yes Status: Acute Code(s): YAW2600 - SNOMED Code(s): 278205533 Comment: ambulation (4) Full code status Current Visit: Yes Status: Acute Code(s): Z78.9 - OTHER SPECIFIED HEALTH STATUS SNOMED Code(s): 110583232
[2016-10-16] MEDS: Citalopram TAB* 20 MG PO SCH (09:40)
[2016-10-16] MEDS: Ondansetron INJ* 2 MG/ML VIAL IV PRN ×2 (09:47→20:55)
[2016-10-16] MEDS: LORazepam INJ* 2 MG/ML 1 ML VIAL IV PUSH PRN ×2 (11:50→23:58)
[2016-10-16] MEDS: Nicotine Patch Removal NOTE PATCH OFF SCH (20:51)
[2016-10-16] MEDS ORDERED: Amitriptyline TAB* 50 MG PO SCH ×2 (21:00)
[2016-10-17] MEDS: Metoclopramide IV* 5 MG/ML 2 ML VIAL IV PRN ×2 (01:13→14:14)
[2016-10-17] MEDS: Ondansetron INJ* 2 MG/ML VIAL IV PRN ×2 (03:55→12:16)
[2016-10-17] MEDS: NS 0.9% 1000 ML* 1,000 ML IV SCH (04:20)
[2016-10-17] MEDS: Nicotine PATCH 21 MG/24 HR* PATCH TRANSDERM SCH (05:32)
[2016-10-17] MEDS: LEVOTHYROXINE 112 MCG PO SCH (05:48)
[2016-10-17] MEDS: PROCHLORPERAZINE INJ 5 MG/ML 2 ML VIAL IV PRN (06:05)
[2016-10-17] MEDS: clonazePAM TAB(*) 1 MG PO PRN ×2 (06:06→12:16)
[2016-10-17] MEDS: Nicotine Inhaler* 10 MG AMP INH PRN (06:13)
[2016-10-17 08:07] VITALS: BP 145/90
[2016-10-17] MEDS ORDERED: LORazepam INJ* 2 MG/ML 1 ML VIAL IV PUSH PRN (10:15)
[2016-10-17] MEDS: Prochlorperazine TAB* 10 MG PO SCH ×2 (10:28→12:45)
[2016-10-17] MEDS: Citalopram TAB* 20 MG PO SCH (10:28)
[2016-10-17] MEDS ORDERED: Famotidine TAB* 20 MG PO SCH (11:00)
--- NOTE | 2016-10-18 01:28 | DS ---
DISCHARGE SUMMARY: DATE OF ADMISSION: 10/13/16 DATE OF DISCHARGE: 10/17/16 NEW PRIMARY CARE PROVIDER: Dr. Angel Briseno. DISCHARGE DIAGNOSES: 1. Possible overdose. 2. Recurrent nausea and vomiting. 3 Hypokalemia. SECONDARY DIAGNOSES: 1. Depression. 2. Anxiety. 3. Attention deficit disorder. 4. Hypothyroidism. 5. History of C. diff. MEDICATION LIST: 1. Amitriptyline 50 mg p.o. at bedtime. 2. Citalopram 20 mg p.o. daily. 3. Clonazepam 2 mg p.o. t.i.d. as needed for anxiety. 4. Famotidine 20 mg p.o. b.i.d. 5. Levothyroxine 112 mcg p.o. daily. 6. Ritalin 20 mg p.o. t.i.d. 7. Compazine 10 mg p.o. q.8 hours. The patient received 5-day prescription of all medications except famotidine and Compazine that she received 2 weeks. HOSPITAL COURSE: Mrs. Liao is a 36-year-old lady with a past medical history as stated as above that presented to the emergency room with complaints of overdose. She came to the emergency room on 10/06/16 after being found half naked on the street stating that she had taken heroin. She was discharged at that time and presented to the emergency room on 10/13/16 after having a possible overdose of an unknown drug. Now that the episode has resolved, the patient states that she brought heroin and snorted it. In the emergency room, initially she was unresponsive and she slowly woke up, but developed recurrent nausea and vomiting. She was admitted for further management. Her urine toxicology was positive for benzos, cocaine and cannabinoids, but it was negative for opiates. The patient is not sure of what drug she was sold and what she really used. She had progressive improvement of her symptoms, was able to tolerate an oral diet. She still had some nausea, but no further episodes of vomiting. The patient was seen by social work specialist, but she is not interested in inpatient rehab at this point. Her plan is to return to [place] with her family and to continue outpatient rehab there. She has a followup appointment with Dr. John Briseno tomorrow, on 10/18/16, at 2:50 p.m., but the plan is for her to establish care back in [place]. PHYSICAL EXAMINATION: Vital Signs: Temperature 98.1, heart rate is 72, respiratory rate 16, oxygen saturation 98% on room air, blood pressure is 145/ 90. General: The patient is a young lady, lying in bed, in no acute distress. CVS: Normal S1 and S2. Regular rate and rhythm. Chest: Breath sounds present bilaterally with no added sounds. Neuro: She is alert, awake, oriented x3. Able to move all 4 extremities. DIET: Regular diet. ACTIVITY: As tolerated. DISPOSITION: To home. STATUS WHILE IN THE HOSPITAL: Inpatient. Please keep in mind this is a summarized version of this patient's hospital stay. If you need more information, please feel free to call me at [phone] or please obtain the full medical records. TIME SPENT: Approximately 40 minutes were spent to complete this discharge. CC: Dr. Angel Briseno * [id number]/CPS #: [id number] ANTONIO
== END 2016-10-17 15:50 | disposition home or self-care (01) | DRG 918 ==
LOC: ED 06:04 → MED 16:52 → OBSVTOIN 10-14 13:30 → UNDODISIN 10-14 13:40
PROVIDERS: ADMIT Hospitalist; ATTEND Internal Medicine
DX: T50.901A Poisoning by unspecified drugs, medicaments and biological substances, accidental (unintentional), initial encounter (principal); F32.9 Major depressive disorder, single episode, unspecified; F41.9 Anxiety disorder, unspecified; F98.8 Other specified behavioral and emotional disorders with onset usually occurring in childhood and adolescence; E03.9 Hypothyroidism, unspecified; F11.10 Opioid abuse, uncomplicated; E66.9 Obesity, unspecified; R74.0 Nonspecific elevation of levels of transaminase and lactic acid dehydrogenase [LDH]; R11.2 Nausea with vomiting, unspecified; E87.6 Hypokalemia; Y92.009 Unspecified place in unspecified non-institutional (private) residence as the place of occurrence of the external cause; Z88.0 Allergy status to penicillin; Z88.6 Allergy status to analgesic agent; Z83.3 Family history of diabetes mellitus; Z82.49 Family history of ischemic heart disease and other diseases of the circulatory system; Z83.49 Family history of other endocrine, nutritional and metabolic diseases; Z68.35 Body mass index [BMI] 35.0-35.9, adult
CPT/HCPCS: 36415; 71010; 80048; 80053; 80076; 80307; 80320; 80329; 81003; 82140; 82550; 82553; 83605; 83690; 83735; 83880; 84443; 84484; 85025; 85027; 86140; 87641; 93005; 99406; A9270-GY; G0378; G0480; J0780; J2060; J2405; J3250; J3480; Q0164